=== PATIENT | male | born 1940 | race Caucasian/White ===

== ENCOUNTER 2023-06-06 16:04 | Emergency (ER) | payer OTHER ==
[~2023-06-06] VITALS: Ht 170.2 cm; Wt 81.6 kg
[2023-06-06 16:30] VITALS: BP 129/66; PULSE 98; RESP 18; TEMP 98.1; O2SAT 98
[2023-06-06 16:36] VITALS: BP 129/66; PULSE 98; RESP 18; TEMP 98.1
[2023-06-06 16:41] VITALS: O2SAT 98
--- NOTE | 2023-06-06 16:44 | NUR ---
PATIENT PRESENTS TO ED WITH HYPERKALIMA. 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 PTS POTASSIUM HAS BEEN HIGH. PT IS HERE FOR POTASSIUM RECHECK DENIES N/V/D; SKIN IS PINK/WARM/DRY; AAOX4 PTS GAIT UNSTEADY PT IS WEARING A GAIT BELT;PT HAD INDWELLING CATHER PLACED DUE TO WEAKNESS. PT HAD CHEMO THERAPY 2 WEEKS AGO. LUNGS CLEAR BL; HR EVEN AND REGULAR; PT DENIES ANY FEVER, CP, SOB, OR COUGH AT THIS TIME; PATIENT STATES PAIN OF 0/10 AT THIS TIME; VSS; PATIENT POSITIONED FOR COMFORT; HOB ELEVATED; BEDRAILS UP X2; BED DOWN. PT PLACED ON MONITOR, CALL LIGHT WITHN IN REACH, FAMILY AT BEDSIDE ER MD MADE AWARE OF PT STATUS. PICCLINE REMOVED RIGHT UPPER ARM PMHX 25 PERCENT OF HIS KIDNEY HTN DM HEMMORIDS HYPERKALEMIA ALLERGIES MORPHINE
[2023-06-06 16:58] LABS: HEMATOCRIT 26.1 % (36-52); HEMOGLOBIN 8.6 g/dL (12.0-18.0); MEAN CORPUSCULAR HEMOGLOBIN 28 pg (27-31); MEAN CORPUSCULAR HGB CONC 33 g/dL (33-37); MEAN CORPUSCULAR VOLUME 86.4 fL (80-94); PLATELET COUNT (AUTO) 357 K/uL (140-450); RED BLOOD CELL COUNT(AUTO) 3.02 MIL/uL (4.20-6.10); RED CELL DISTRIBUTION WIDTH 22.3 % (11.6-13.7); WHITE BLOOD COUNT (AUTO) 6.5 K/uL (4.8-10.8)
[2023-06-06 16:59] VITALS: O2SAT 98
[2023-06-06 17:15] LABS: ALBUMIN 2.1 g/dL (3.4-5.0); ANION GAP 11.7 (8-16); ASPARTATE AMINOTRANSFERASE 12 U/L (15-37); CARBON DIOXIDE 30.2 mmol/L (21-32); CHLORIDE 98 mmol/L (98-107); CREATININE 2.9 mg/dL (0.6-1.3); GLUCOSE 245 mg/dL (74-106); POTASSIUM 4.9 mmol/L (3.5-5.1); SODIUM SERUM 135 mmol/L (136-145); TOTAL BILIRUBIN 0.3 mg/dL (0.0-1.0); UREA NITROGEN, BLOOD 49 mg/dL (7-18)
[2023-06-06 17:28] LABS: BASOPHILS % (MANUAL) 0 % (0-2); EOSINOPHILS % (MANUAL) 2 % (0-4); LYMPHOCYTES % (MANUAL) 16 % (20-46); MONOCYTES % (MANUAL) 7 % (5-12)
[2023-06-06] MEDS ORDERED: HYDR-2734 TP (17:33)
--- NOTE | 2023-06-06 17:39 | NUR ---
PT seen by provider. Patient discharged with v/s stable. Written and verbal after care instructions given and explained. Patient verbalized understanding. Ambulatory with steady gait. All questions addressed prior to discharge. Advised to follow up with PMD.
--- NOTE | 2023-06-06 17:44 | NUR ---
The patient's care was reviewed and supervised by [place] [facility], RN.
== END 2023-06-06 17:44 | disposition home or self-care (01) ==
LOC: MED 16:04
DX: K64.9 Unspecified hemorrhoids (principal); D64.9 Anemia, unspecified; I13.10 Hypertensive heart and chronic kidney disease without heart failure, with stage 1 through stage 4 chronic kidney disease, or unspecified chronic kidney disease; E11.22 Type 2 diabetes mellitus with diabetic chronic kidney disease; N18.9 Chronic kidney disease, unspecified; Z79.4 Long term (current) use of insulin; Z79.899 Other long term (current) drug therapy
CPT/HCPCS: 36415; 80053; 85025; 99283